=== PATIENT | female | born 1985 | race Caucasian/White ===

== ENCOUNTER 2020-12-25 20:54 | Emergency (ER) | payer BC, OTHER ==
[2020-12-25] MEDS ORDERED: fentaNYL 50 MCG/ML SDV ONE (20:59)
--- NOTE | 2020-12-25 21:08 | EDM.PDOC ---
ED HPI GENERAL MEDICAL PROBLEM - General Chief Complaint: Upper Extremity Injury/Pain Stated Complaint: shoulder dislocation Time Seen by Provider: 12/25/20 20:54 Source of Information: Reports: Patient History Limitations: Reports: No Limitations - History of Present Illness INITIAL COMMENTS - FREE TEXT/NARRATIVE: Patient comes in the emergency department by EMS with a right shoulder dislocation. Patient has a longstanding history of shoulder dislocation requiring intervention approximately 2 years ago. Patient states that she has not had any issues since then. Patient states that she was grabbing her car seat and ended up popping the right shoulder instantly she felt the discomfort and pain. She is unable to move that right shoulder due to the pain. She states that she does have range of motion again CMS in her fingers and wrist however she is unable to move the shoulder due to the extent cruciated pain. She denies falling or any other trauma related injury to that right shoulder. Onset: Sudden Duration: Constant Location: Reports: Upper Extremity, Right Quality: Reports: Sharp, Stabbing, Throbbing Severity: Moderate Improves with: Reports: Rest Worsens with: Reports: Movement Context: Reports: Activity Associated Symptoms: Reports: No Other Symptoms ED ROS GENERAL - Review of Systems Review Of Systems: Comprehensive ROS is negative, except as noted in HPI. Constitutional: Reports: No Symptoms HEENT: Reports: No Symptoms Respiratory: Reports: No Symptoms Cardiovascular: Reports: No Symptoms Endocrine: Reports: No Symptoms GI/Abdominal: Reports: No Symptoms : Reports: No Symptoms Musculoskeletal: Reports: Arm Pain Skin: Reports: No Symptoms Neurological: Reports: No Symptoms Psychiatric: Reports: No Symptoms Hematologic/Lymphatic: Reports: No Symptoms Immunologic: Reports: No Symptoms ED EXAM, GENERAL - Physical Exam Exam: See Below Exam Limited By: No Limitations General Appearance: Alert, WD/WN, No Apparent Distress Nose: Normal Inspection, Normal Mucosa Head: Atraumatic, Normocephalic Neck: Normal Inspection, Supple, Non-Tender Respiratory/Chest: No Respiratory Distress, Lungs Clear, Normal Breath Sounds, No Accessory Muscle Use, Chest Non-Tender Cardiovascular: Normal Peripheral Pulses, Regular Rate, Rhythm, No Edema, No Rub Back Exam: Normal Inspection, Full Range of Motion Extremities: Arm Pain, Limited Range of Motion Neurological: Alert, Oriented, Normal Gait Psychiatric: Normal Affect, Normal Mood Skin Exam: Warm, Dry, Intact, Normal Color ED GENERAL MEDICAL PROCEDURES - Joint Reduction Right Shoulder Sedation: Other Pre-procedure NV status: Normal Post-procedure NV status: Normal Technique: Traction/Counter Traction Number of Attempts: 2 Post-Reduction Imaging: Completely Reduced Joint Reduction Complications: No Course - Orders/Labs/Meds Orders: Active Orders 24 hr Category Date Time Status Shoulder 1V Rt [CR] Stat Exams 12/25/20 21:05 Ordered Meds: Medications Discontinued Medications Generic Name Dose Route Start Last Admin Trade Name Heydi PRN Reason Stop Dose Admin Fentanyl Confirm 12/25/20 20:59 Fentanyl 50 Mcg/Ml Sdv Administered 12/25/20 21:00 Dose 50 mcg .ROUTE .STK-MED ONE Departure - Departure Time of Disposition: 21:40 Disposition: Home, Self-Care 01 Condition: Good Clinical Impression: Shoulder dislocation Qualifiers: Encounter type: initial encounter Laterality: right Qualified Code(s): S43.004A - Unspecified dislocation of right shoulder joint, initial encounter - Discharge Information *PRESCRIPTION DRUG MONITORING PROGRAM REVIEWED*: Not Applicable *COPY OF PRESCRIPTION DRUG MONITORING REPORT IN PATIENT MARY: Not Applicable Instructions: Shoulder Dislocation, Pain Medicine Instructions, [id number] Forms: ED Department Discharge Additional Instructions: 1. Rest 2. wear splint for 5-7 days as needed to help with any pain or discomfort 3. Can use tylenol and ibuprofen as needed for pain and discomfort 4. Diet as tolerated 5. Activity as tolerated 6. Elevated the injured arm on a pillow or chair to decrease swelling and discomfort. 7. Use ice 3-4 times a day at 20-minute intervals to help with any swelling and discomfort 8. Follow-up with your primary care provider symptoms continue or to progress 9. Follow with any questions or concerns 10. Discharge information has been provided regarding your injury - My Orders Last 24 Hours: My Active Orders 12/25/20 21:05 Shoulder 1V Rt [CR] Stat - Assessment/Plan Last 24 Hours: My Active Orders 12/25/20 21:05 Shoulder 1V Rt [CR] Stat Assessment:: 1. right shoulder dislocation Plan: 1. X-ray completed in the emergency department results reviewed with the patient 2. Ice Applied to the affected limb 3. Medication offered to the patient- fentanyl 4. reduction completed in the ER 5. Education regarding splinting, activity, [id number] medications, and follow-up care provided. 6. All questions and concerns addressed with the patient prior to discharge
[2020-12-25] MEDS ORDERED: Take Home: Acetaminophen/oxyCODONE 325-5 MG, 5 Tab Pack PO ONE (21:37)
--- NOTE | 2020-12-26 09:33 | CR ---
[id number] RAD/RAD Shoulder Right 2V Min EXAM: RAD Shoulder Right 2V Min INDICATION: PRE REDUCTION COMPARISON: None. DISCUSSION: Anterior glenohumeral dislocation. No other osseous abnormality is identified on this single view. IMPRESSION: 1. Anterior glenohumeral dislocation. Schuyler Gutierrez MD 12/26/20 0932 Thank you for allowing us to participate in the care of your patient.
--- NOTE | 2020-12-26 09:35 | CR ---
[id number] RAD/RAD Shoulder Right 2V Min EXAM: RAD Shoulder Right 2V Min INDICATION: POST REDUCTION COMPARISON: Earlier same date. DISCUSSION: Interval reduction of a glenohumeral dislocation. Possible Hill-Sachs impaction lesion. No other osseous abnormality is identified. IMPRESSION: 1. Successful reduction of a glenohumeral dislocation. Possible Hill-Sachs lesion. Schuyler Gutierrez MD 12/26/20 0933 Thank you for allowing us to participate in the care of your patient.
== END 2020-12-25 21:43 | disposition home or self-care (01) ==
LOC: VM.ED 20:54
DX: S43.004A Unspecified dislocation of right shoulder joint, initial encounter (principal); X50.0XXA Overexertion from strenuous movement or load, initial encounter
CPT/HCPCS: 23650; 73020; 96374; 99283; 99284; A9270; J3010